=== PATIENT | female | born 1950 | race Caucasian/White ===

== ENCOUNTER 2016-12-26 01:08 | Inpatient (IN) | payer MEDICARE ==
[~2016-12-26] VITALS: Ht 167.6 cm; Wt 74.3 kg
--- NOTE | ~2016-12-26 | CONS ---
PATIENT'S NAME: LOIDA BAHENA [facility] AGE: 66 Y [address] 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 Dear Doctor: It was a pleasure today to see in inpatient consultation, Ms. Loida Bahena. As you recall, this is a 66-year-old white female, with a 50+ pack-year smoking history whose history indicates that over the last week and a half or so, she started having problems with behaving in an odd fashion, disoriented, and having trouble with slurred speech. She indicates that she had trouble articulating and consequently was taken to the emergency room. Initially, she was told, she was dehydrated. Subsequently, she also did start having complaints of lower back pain, and was brought to the emergency room on 12/25/2016 where she underwent a CT which appeared to reveal a subacute left posterior temporal and parietal lobe infarct. Secondary to this, the patient was transferred to [facility], was seen by Dr. Morris. Further workup of this patient indicated scans of the chest which revealed prominent hilar structures possibly vascular but hilar mass and nodule enlargement could not be ruled out. The patient when transferred to [facility], was found to be disoriented, could not give a history at the time, was alert but did not follow commands, and her sister accompanied her from whom a great deal of the history was taken. The patient subsequently underwent a craniotomy with removal of the tumor from the left temporal region, final pathology is pending. Further, the patient on scans was found to have multiple areas of what appears to be metastatic disease including multiple lesions in the lumbar sacral region, in the thoracic spine with a compression fracture at T9. She has lesions in the liver, in the spleen, in the lungs, and the above-mentioned left temporal region as well as a small lesion noted in the right brain as well. Final pathology is pending at this time. PATIENT'S NAME: [facility] AGE: 66 Y [address] ROOM: [id number] [place] [id number] LOCATION: [facility] ADMIT DATE: 12/26/2016 Oncology Report DISCHARGE DATE: FAMILY PHYSICIAN: Tony Kraus MD ATTENDING PHYSICIAN: MIKAEL ZAFAR When seen today, the patient is lying in bed. She is alert, is oriented to person, place, and time. She does have difficulty with speech, aphasia. She indicates she understands what words she wants to say but has difficulty getting them out. She denies any falling episodes. Does indicate that she has had complaints of back pain and confusion. Denies any specific complaints of headaches. ALLERGIES: THE PATIENT HAS NO KNOWN DRUG ALLERGIES. MEDICATIONS: Current medications include: 1. Pepcid. 2. Norvasc. 3. Albuterol. 4. Xylocaine. 5. OxyContin. 6. Apresoline. 7. Trandate. 8. Keppra. 9. Decadron. 10. Reglan. 11. Dilaudid. 12. Zofran. 13. Tylenol. 14. Levaquin. 15. Cefazolin. PAST MEDICAL HISTORY: Surgical: Positive for hysterectomy and cholecystectomy. Medical: Positive for COPD, currently on home oxygen. FAMILY HISTORY: The patient's father from lung cancer with a history of smoking. Mother from heart failure at an old age. SOCIAL HISTORY: The patient lives with her grandson in [place]. She has a 50+ pack-year smoking history. No history of alcohol use. No history of injectable illicit drugs noted. No previous history of radiation therapy noted. REVIEW OF SYSTEMS: Due to the patient's speech aphasia, review of systems was difficult to PATIENT'S NAME: [facility] AGE: 66 Y [address] ROOM: [id number] [place] [id number] LOCATION: [facility] ADMIT DATE: 12/26/2016 Oncology Report DISCHARGE DATE: FAMILY PHYSICIAN: Tony Kraus MD ATTENDING PHYSICIAN: MIKAEL ZAFAR. The patient denied headaches. She denied falling episodes. Indicated she had trouble with disorientation. PHYSICAL EXAMINATION: VITAL SIGNS: Include a temperature of 97.7, a pulse of 82, a blood pressure of 140/68, weight of 75.2 kg. She has O2 sats of 93% on 3 L of oxygen. HEAD AND NECK: Normocephalic, atraumatic. The patient has a dressing in place in the left temporal region. This appears to be within normal limits. The oral cavity is without masses or mycotic lesions. NECK: With no masses noted. BACK: We did not examine the patient's back where she had surgery, today. NEUROLOGIC: The patient appears to be alert and oriented x3. She knows who the president is, what year it is, where she is. She does have difficulty getting these out but is clearly aware as to what is going on around her. She answers questions appropriately although she does have trouble with word finding. Muscle strength in the upper and lower extremities are 4+/5. We did not attempt to walk the patient. The patient is able to step on the gas and pull up on the gas with both her feet. She has good hand strengths, both on the left and the right. She is able to stick her tongue out to the left and right, close her eyes, and not have them opened upon pressure from the examiner. Her mini mental exam appears to be grossly normal but does have speech aphasia. This concluded the limited physical examination of this patient. LABORATORY DATA: The patient has undergone multiple scans. She has had MRIs done of the thoracic spine, with and without contrast, which revealed marrow replacement at T9 with mild compression deformity, neoplastic bone involvement at multiple additional areas of the thoracic spine. Lesion seen at T1, T7, T8. No spinal stenosis identified. The patient also had a MRI of the brain, which revealed postoperative changes in the left temporal parietal craniotomy site. Also noted was a small enhancing lesion in the periventricular white matter at the posterior right temporal lobe. Air and fluid were noted in the operative bed. Prior to her surgery, the patient was found to have a 12 mm in diameter, posterior left temporal lobe lesion, which has been surgically resected at this time. No midline shift was noted at the time. CT of the chest, abdomen, and pelvis revealed extensive mediastinal adenopathy with enlarged nodes at the aortopulmonary window, precarinal, subcarinal, and right paratracheal areas. Also noted was a prominent node, lateral to the descending thoracic aorta. Small left pleural effusion and minimal right pleural effusion were noted. Small pericardial effusion and small area of dependent atelectasis. Vascular changes noted in the thoracic aorta, and vessels, the aortic arch and coronary arteries. Abdomen and pelvis revealed a low attenuation PATIENT'S NAME: LOIDA BAHENA [facility] AGE: 66 Y [address] ROOM: [id number] [place], [place] [address] LOCATION: [facility] ADMIT DATE: 12/26/2016 Oncology Report DISCHARGE DATE: FAMILY PHYSICIAN: Tony Kraus MD ATTENDING PHYSICIAN: MIKAEL ZAFAR lesion, ill-defined left lobe of the liver measuring 5 cm in diameter consistent with metastatic disease, 1 cm low-attenuation lesion in the medial aspect of the spleen, which could be metastatic disease, thickening of the right and left adrenal glands, which could be neoplastic involvement. Two areas of decreased attenuation in the right kidney, the larger being about 6 cm in size, the smaller about 3 cm in size. Multiple areas of small decreased attenuation in the cortex of the left kidney which could reflect areas of renal infarction or infiltrative neoplastic renal involvement. Pathology is pending at this time. We will await final pathology. ICD 10. IMPRESSION: A 66-year-old white female with what appears to be widely metastatic disease from a probable lung primary with metastatic disease to the brain, thoracic lumbar spine region, liver, spleen, lungs; workup in progress. PLAN: We discussed with the patient the fact that she would probably need adjuvant radiotherapy as well as chemotherapy. We went over with her the potential risks and benefits. The patient indicated that she lives in [place] and would wish to be treated there. We are in agreement with this. As such, we understand the patient is being scheduled to be transferred to a skilled unit in [place]. We indicated to her that we would encourage her to be seen by Radiation Oncology and Medical Oncology in [place], so that they could address her issues and treat her. The patient was thankful for our help. She indicated she was very much wanting to go home. We were in agreement with this. Consequently, we will defer from any treatment plan for this patient at this time. We indicated to her that should there be a problem in the future, we would be glad to see her as she desired. She will be transferred to [place] where she can be seen by Radiation Oncology and Medical Oncology and a treatment plan devised. We thank you for allowing us to consult on this most pleasant patient. Sincerely, GENO SHERMAN MD, PHD PATIENT'S NAME: LOIDA BAHENA [facility] AGE: 66 Y [address] ROOM: [place] [address] LOCATION: [facility] ADMIT DATE: 12/26/2016 Oncology Report DISCHARGE DATE: FAMILY PHYSICIAN: Tony Kraus MD ATTENDING PHYSICIAN: MIKAEL ZAFAR/ulysses /[id number] CC: MD Srinivasan Morse MD Ahmad Bader, MD d: 12/29/16 1208 t: 01/11/17 1156, CONSULTATION REPORT
--- NOTE | ~2016-12-26 | CON ---
PATIENT'S NAME: LOIDA BAHENA [facility] AGE: 66 Y [address] ROOM: [address] [address] LOCATION: GICU ADMIT DATE: 12/26/2016 Consultation DISCHARGE DATE: FAMILY PHYSICIAN: PHYSICIAN, UNKNOWN ATTENDING PHYSICIAN: MIKAEL ZAFAR REFERRING PHYSICIAN: JORDAN MORRIS MD CONSULTATION NOTE CHIEF COMPLAINT: Asked to evaluate the patient with metastatic disease to the brain. HISTORY OF PRESENT ILLNESS: Loida Bahena is a 66-year-old female, who lives with her grandson, who over the last couple weeks has had increased disorientation and not making sense. Her speech has been fluent and she has been able to walk and get around without difficulty, although her performance status and strength had been diminishing. She was not walking around as much in the house and difficulty lying on the furniture more often over the last couple weeks. Because of the disorientation, the patient was seen for evaluation. Thought to have possible infection and subsequently returned for re-evaluation and on 12/25, CT scan of the brain was performed which demonstrated concerning findings for an acute or subacute infarct and this was reviewed by Dr. Morris and the patient was transferred for further care given the concern that this would be a malignant process. While here on 12/26/2016, she had an MRI of the brain, which did demonstrate a 12-mm mass at the posterior left jewish area with associated edema. Additionally, a small area at the right posterior jewish was noted. A CT scan of the chest, abdomen, and pelvis was performed which demonstrated extensive adenopathy in the thorax and abdomen along with right hilar soft- tissue fullness, left greater than right pleural effusion, liver mass, kidneys with multiple hypoattenuation lesions, bilateral adrenal thickening and a T9 lytic lesion. The patient did undergo craniotomy yesterday with frozen section suggesting squamous cell carcinoma. Final pathology is pending. She was initiated on dexamethasone 4 mg q.6 hours and today is doing fair a bit better with speech and muscle strength, although not at baseline per the family. The patient does report some back pain. She does not go into detail and answers mostly yes and no questions during the evaluation, but it appears, she has midback pain that comes around the sides. Additionally, she confirmed leg weakness, but still has been able to get around the house with the aid of furniture. She denies any other aches or pains. Denies any breathing trouble, cough, or phlegm. She denies any abdominal pain or discomfort. No nausea or vomiting. REVIEW OF SYSTEMS: The remainder of the review of systems is unremarkable or negative in detail. PATIENT'S NAME: LOIDA BAHENA [facility] AGE: 66 Y [address] ROOM: [place] [address] LOCATION: [facility] ADMIT DATE: 12/26/2016 Consultation DISCHARGE DATE: FAMILY PHYSICIAN: PHYSICIAN, UNKNOWN ATTENDING PHYSICIAN: MIKAEL ZAFAR PAST MEDICAL HISTORY: Includes: COPD and was recently placed on home oxygen. ALLERGIES: NO KNOWN MEDICAL ALLERGIES. SOCIAL HISTORY: The patient has smoked for the last 50 years one pack per day and continues. 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 FAMILY HISTORY: The patient's father had lung cancer. Otherwise, no other cancers in the family. PHYSICAL EXAMINATION: VITAL SIGNS: Blood pressure 124/76, pulse 76, respirations 12, and temperature 98.2. GENERAL: The patient appears quite comfortable. No apparent distress. She is accompanied by a number of family members and grandson included at her bedside. HEENT: Pupils are equal, round, minimally responsive to light. Extraocular muscles are intact. Oral mucosa is moist and pink without erythema, without lesions. NECK: Without adenopathy as is the axillary region. HEART: Regular rate and rhythm. No murmurs appreciated. LUNGS: Clear to auscultation bilaterally without wheezing, without rhonchi. ABDOMEN: Bowel sounds positive. She is tender to palpation in the upper and left upper quadrant epigastric area more so than the rest of the belly. EXTREMITIES: Without cyanosis, clubbing, or edema. She moves all extremities spontaneously. Hand video manager is 4+ to 5/5 and dorsiflexion and plantar flexion of the feet seem to be symmetric and 4+ to 5/5 bilaterally. She does lift both legs off the bed without difficulty. IMAGING STUDIES: Radiologic review included a CT scan and MRI as noted above. LABORATORY DATA: Laboratory includes chemistries with a BUN and creatinine of 24 and 0.7 respectively. Potassium was 4.1. LFTs were unremarkable with an AST of 20, ALT of 18, and alkaline phosphatase of 98. Her albumin was 2.5, total protein 9, and globulin of 5. CBC was unremarkable with a white blood cell count of 8.6, hemoglobin 16.1, and platelets are 241,000. IMPRESSION AND PLAN: PATIENT'S NAME: LOIDA BAHENA [facility] AGE: 66 Y [address] ROOM: [place] [address] LOCATION: [facility] ADMIT DATE: 12/26/2016 Consultation DISCHARGE DATE: FAMILY PHYSICIAN: PHYSICIAN, UNKNOWN ATTENDING PHYSICIAN: MIKAEL ZAFAR Loida Bahena is a 66-year-old female with disseminated disease consistent with metastatic disease along with findings consistent with brain metastasis status post craniotomy on 12/26/2006 with frozen section suggesting squamous cell carcinoma. This would be consistent with her clinical finding of hilar mass and findings suggest liver, renal, and bone metastases. She does have an MRI of the spine scheduled for later today given the back pain. We will await the MRI scans as should the patient have metastatic disease to the spine with spinal cord compression. Radiation therapy could be considered, additionally radiation therapy either as stereotactic radiosurgery or whole-brain radiation could be considered for the brain metastasis as well. Systemic therapy including chemotherapy or immunotherapy are also worth considering and would depend on further testing by [facility] and certainly would depend on the final pathology report. We will send out for [facility] testing knowing that this takes a couple weeks to return and likely delay the systemic therapy consideration until those results are back. MD CHRIS OCPE/ulysses /[id number] d: 12/27/16 1857 t: 01/05/17 1251, CONSULTATION REPORT
--- NOTE | ~2016-12-26 | CON ---
PATIENT'S NAME: FABY BAHENA [facility] AGE: 66 Y [address] ROOM: [place] [id number] LOCATION: GICU ADMIT DATE: 12/26/2016 Consultation DISCHARGE DATE: FAMILY PHYSICIAN: PHYSICIAN, UNKNOWN ATTENDING PHYSICIAN: MIKAEL ZAFAR DATE OF CONSULTATION: 12/26/2016 REFERRING PHYSICIAN: JORDAN FENTON MD CHIEF COMPLAINT: Left temporal intra-axial tumor, confusion, dysphagia. HISTORY OF PRESENT ILLNESS: The patient is a 66-year-old, right-handed female patient, who has been having increasing confusion, disorientation, behavioral changes, and speech difficulties for 7 to 10 days. The patient also has been complaining of severe mid back pain. She was previously diagnosed with T9 compression fractures and she is due for MRI spine this week. On December 25, 2016, the patient's confusion and disorientation increased. She was seen at [facility] and a noncontrast CT head showed evidence of left temporal lobe vasogenic edema and suspicious intra-axial mass. The patient does have a long history of heavy smoking and COPD. I was contacted and reviewed the images. I recommended transferring the patient over for further investigations and treatment and the patient was admitted under the hospitalist. I met the patient in the presence of her family. Her sister Arianna confirmed the history. The patient also reported headaches. She also reported unsteady gait. They denied falls. The patient was in excruciating back pain at the time of the encounter. She denied weakness on her hands, weakness on her feet. She denied visual disturbances. PAST MEDICAL AND SURGICAL HISTORY: COPD, heavy smoking, hysterectomy, cholecystectomy. MEDICATIONS: Listed in the patient's chart. ALLERGIES: NO KNOWN DRUG ALLERGIES. REVIEW OF SYSTEMS: All points review of systems were asked about. Pertinent positives were mentioned in the HPI. SOCIAL HISTORY: PATIENT'S NAME: [facility] AGE: 66 Y [address] ROOM: [place] [address] LOCATION: [facility] ADMIT DATE: 12/26/2016 Consultation DISCHARGE DATE: FAMILY PHYSICIAN: PHYSICIAN, UNKNOWN ATTENDING PHYSICIAN: MIKAEL ZAFAR The patient is an active smoker. She has done that for many years. She denies alcohol intake. FAMILY HISTORY: History of lung cancer in her dad. PHYSICAL EXAMINATION: GENERAL: The patient was cooperative and pleasant. HEENT: Head; no obvious signs of head trauma. The pupils were 3 mm and reactive. The sclera examination was normal. NECK: No tenderness to palpation. No palpable masses. NEUROLOGIC: The patient was alert, awake, oriented to herself and [facility]. She was disoriented to time and date. She named 2/3 objects. She had a right/left disorientation. She only followed one step commands. She had obvious word-finding difficulties and dysphasia. She was also perservating. Pupils were 3 mm and reactive. Sclerae examination was normal bilaterally. Face was symmetric. Facial sensation was symmetric. No evidence of pronator drift. Motor examination on the lower extremities showed moderate proximal muscle weakness. She also had positive Babinski sign bilaterally and positive clonus on her feet. RESPIRATORY: She was not in any respiratory distress. CARDIOVASCULAR: She had palpable pulses on the upper extremities. BACK: No obvious deformity, but had tenderness to palpation in the thoracic spine. GAIT: Not done. MUSCULOSKELETAL: No evidence of muscle wasting. INVESTIGATIONS: 1. Noncontrast CT head done in [place] on December 25, 2016 which I personally reviewed. It showed evidence of swelling and vasogenic edema involving the posterior aspect of the left temporal lobe. It also showed signs of an intra-axial growth within left temporal lobe with vasogenic edema. No evidence of fractures. 2. MRI brain without and with contrast done on December 26, 2016. It showed evidence of ring enhancing, intra-axial lesion within the posterior aspect of the left temporal lobe. It also showed evidence of another small lesion within the right temporal lobe. The imaging findings are very highly suspicious for secondary brain tumor/metastases. 3. Chest, abdomen, and pelvic CT scans. I reviewed the report. The patient does have extensive adenopathy involving the thorax and abdomen. It also showed evidence of possible mass within the left lung. She also has bilateral pleural effusion. It also showed evidence of liver lesion. It also showed evidence of abnormalities in the kidneys. It also showed evidence of involvement of the adrenal glands. The imaging findings are very highly suspicious for metastatic disease. PATIENT'S NAME: FABY BAHENA [facility] AGE: 66 Y [address] ROOM: [id number] [place] [address] LOCATION: [facility] ADMIT DATE: 12/26/2016 Consultation DISCHARGE DATE: FAMILY PHYSICIAN: PHYSICIAN, UNKNOWN ATTENDING PHYSICIAN: MIKAEL ZAFAR IMPRESSION: A 66-year-old female patient is presenting with increasing confusion, speech difficulties, and behavioral changes, is found to have a ring enhancing mass within the posterior aspect of the left temporal lobe. The imaging also showed evidence of another smaller ring enhancing mass within the right temporal lobe. The imaging findings are very highly suspicious for metastatic brain disease. The patient had metastatic workup and that revealed liver, adrenal, kidney, and left lung lesions as well as extensive thorax and abdomen adenopathy. All those findings are very highly suspicious for metastatic disease. PLAN: I recommended left craniotomy and resection of left temporal intra-axial mass. I recommended that using stealth navigation system. I discussed the procedure itself, the benefits, and all the risks associated with it with the patient and her sister Arianna. I also discussed hospital stay, postoperative management, and recovery. The patient and her family were interested in proceeding with surgery, so the patient was booked for surgery With regard to the T9 compression fracture, I recommended MRI thoracic and lumbar spine to further investigate that for pathological fracture and possible spinal cord compression at that level which can explain the weakness on the lower extremities. With regard to postoperative management, I clearly indicated that Medical and Radiation Oncology will be involved. The patient and her sister asked appropriate questions and those were answered to their satisfaction. They were interested in proceeding with surgery, so the patient was booked for surgery. It was pleasure taking care of this patient and thanks for having us involved. MD LB GIANG/modl /[id number] CC: MD Tony Morse MD d: 12/26/16 2329 t: 12/28/16 1606, CONSULTATION REPORT
--- NOTE | ~2016-12-26 | DS ---
PATIENT'S NAME: FABY BAHENA [facility] AGE: 66 Y [address] ROOM: [id number] [place], [place] [address] LOCATION: CU ADMIT DATE: 12/26/2016 Discharge Summary DISCHARGE DATE: 12/30/2016 FAMILY PHYSICIAN: Tony Kraus MD ATTENDING PHYSICIAN: Brad Herman ADMISSION MAIN DIAGNOSES: 1. Left temporal intraparenchymal tumor, metastatic brain disease. 2. T9 pathologic compression fracture with significant back pain. DISCHARGE MAIN DIAGNOSES: 1. Left temporal intraparenchymal tumor, metastatic brain disease ( adenocarcinoma). 2. T9 pathologic compression fracture with significant back pain. PROCEDURES DURING ADMISSION: 1. Stealth guided left temporal craniotomy and gross total resection of left temporal intraparenchymal tumor. 2. T9 kyphoplasty (performed by Dr. Tony Cifuentes). COMPLICATIONS DURING ADMISSION: None. MEDICATIONS ON DISCHARGE: 1. Norvasc 2.5 mg p.o. once daily. 2. Dexamethasone 3 mg p.o. every 8 hours for 2 days, then 2 mg p.o. every 8 hours for 3 days, then 2 mg p.o. b.i.d. for 3 days, then 2 mg p.o. once daily untill assessed by medical and radiation oncology. 3. Lovenox 40 mg subcu once daily. 4. Pepcid 20 mg p.o. b.i.d. 5. Lasix 40 mg p.o. once daily. 6. Keppra 500 mg p.o. b.i.d. 7. Levaquin 750 mg p.o. once daily for 2 days. 8. Ipratropium albuterol 0.5-3 mg per 3 mL 1 inhaler 4 times a day. 9. Tramadol 50 mg p.o. every 6 hours p.r.n. 10. Reglan 10 mg p.o. every 6 hours p.r.n. 11. Zofran 4 mg p.o. every 6 hours p.r.n. DISCHARGE INSTRUCTIONS AND FOLLOWUP APPOINTMENTS: 1. The patient will be transferred to a swing bed in [place] to continue inpatient physical therapy, inpatient Occupational Therapy, and speech therapy. 2. The patient may wash her head on January 01, 2017. 3. Discontinue head chris on January 08, [address] Kraus. 4. MRI brain without and with contrast prior to starting whole-brain radiation. PATIENT'S NAME: FABY BAHENA [facility] AGE: 66 Y [address] ROOM: [id number] [place], [place] [address] LOCATION: GICU ADMIT DATE: 12/26/2016 Discharge Summary DISCHARGE DATE: 12/30/2016 FAMILY PHYSICIAN: Tony Kraus MD ATTENDING PHYSICIAN: Brad Herman 5. Call my office for any concerns regarding the wound healing or for any new neurologic symptoms. HOSPITAL COURSE: The patient is an unfortunate 66-year-old female patient who was diagnosed with a left temporal intraaxial tumor. She was having increasing confusion, headaches, and speech difficulties. She was transferred over from [facility] and further investigations revealed ring-enhancing mass in the left temporal lobe associated with significant vasogenic edema as well as a small ring-enhancing mass in the right temporal lobe. The patient had metastatic workup done here and that revealed numerous spine lesions, T9 pathologic fracture with no significant spinal cord compression, large left lung mass associated with thoracic and abdominal adenopathy, bilateral pleural effusions, hepatic mass, adrenal and kidney masses. The patient underwent left craniotomy and resection of tumor on December 26, 2016 without any complications. The patient did very well postoperatively. Her preoperative dysphasia slowly started to improve. She had a postoperative MRI without and with contrast and that showed gross total resection of the left temporal ring-enhancing tumor. The final pathological analysis came back and that was consistent with metastatic adenocarcinoma. The patient was seen by Medical Oncology and Radiation Oncology here. It was felt that this patient would benefit from systemic chemotherapy/immunotherapy as well as whole-brain radiation/SRS. The patient was having severe back pain from the T9 pathologic fracture. Given that, the patient underwent T9 kyphoplasty on December 28, [address] Cifuentes without any complications. She did very well after it. She mobilized well with physical therapy and occupational therapy. She had significant improvement of the back pain. Given the patient's recent surgery and systemic disease, I felt that this patient would benefit from intensive inpatient rehab. I felt that this can be done in a swing bed at [facility] and patient was asking to be closer to home. Given that, arrangements were made to transfer the patient to [facility] to continue inpatient physical therapy, occupational therapy, and speech therapy. Arrangements were also made for this patient to follow with Medical and Radiation Oncology in [place] to start adjuvant therapy. On the day of discharge, I examined the patient, she was doing very well, her incision was healing very well without any evidence of leakage or infection. She was alert, oriented to herself and to place. She followed 1 and 2 step commands. She named 3/3 objects. The preop left/right disorientation improved. Pupils were equal and reactive. She moved all 4 extremities without any focal weakness. Given that, I felt that the patient is stable for discharge. I also discussed the situation and discharge instructions with receiving physician, Dr. Kraus. Dr. Kraus was asked appropriate questions about management. The patient will be transferred over today. PATIENT'S NAME: FABY BAHENA [facility] AGE: 66 Y [address] ROOM: [place] [address] LOCATION: [facility] ADMIT DATE: 12/26/2016 Discharge Summary DISCHARGE DATE: 12/30/2016 FAMILY PHYSICIAN: Tony Kraus MD ATTENDING PHYSICIAN: Brad Herman MD LB GIANG/ulysses /[id number] CC: MD Tony Morse MD Lissa A Woodruff, MD d: 12/31/16 0307 t: 12/31/16 1126, DISCHARGE SUMMARY
--- NOTE | ~2016-12-26 | OR ---
PATIENT'S NAME: JOSEF, [facility] AGE: 66 Y [address] ROOM: [place] [address] LOCATION: GICU ADMIT DATE: 12/26/2016 OR/Procedure Report DISCHARGE DATE: FAMILY PHYSICIAN: PHYSICIAN, UNKNOWN ATTENDING PHYSICIAN: MIKAEL ZAFAR SURGEON: Bhupendra Morris MD RETURN AGENT AIRPORT: DATE OF PROCEDURE: 12/26/2016 ANESTHESIOLOGIST: Garfield Shaw MD ANESTHESIA: General. COMPLICATIONS: None. ESTIMATED BLOOD LOSS: Minimal. PREOPERATIVE DIAGNOSIS: Left temporal intra-axial tumor with significant vasogenic edema. POSTOPERATIVE DIAGNOSIS: Left temporal intra-axial tumor with significant vasogenic edema. PROCEDURES PERFORMED: 1. Stealth navigation system. 2. Stealth guided left temporal craniotomy and gross total resection of intra-axial temporal lobe tumor. CLINICAL HISTORY: The patient is an unfortunate 66-year-old female patient, who has been noticed by her family to have disorientation and changes in her behavior as well as speech difficulties for a few weeks, was diagnosed with a left temporal intra-axial ring enhancing tumor. The patient was seen yesterday at [facility], and a noncontrast CT head showed significant vasogenic edema in the posterior aspect of the left temporal lobe. The patient was transferred over and further investigated. She had brain MRI without and with contrast and that showed a ring enhancing lesion within the posterior aspect of the left temporal lobe as well as another small ring enhancing mass within the right temporal lobe. The mass in the left temporal lobe was associated with significant edema. The patient also had metastatic workup with chest, abdomen, and pelvic CT scans and those showed evidence of widespread lymphadenopathy, hepatic mass, adrenal mass, and fracture involving the T9 vertebra. It also showed mediastinal lymphadenopathy. Based on the MRI findings, I thought that the intracranial lesions are most likely metastatic. Given the patient's symptoms, I recommended the above-mentioned surgery to resect the tumor, establish the diagnosis, and hopefully reverse PATIENT'S NAME: JOSEF, [facility] AGE: 66 Y [address] ROOM: [place] [address] LOCATION: GICU ADMIT DATE: 12/26/2016 OR/Procedure Report DISCHARGE DATE: FAMILY PHYSICIAN: PHYSICIAN, UNKNOWN ATTENDING PHYSICIAN: MIKAEL ZAFAR the deficits. I discussed the procedure itself with the patient and her sister, Arianna. I discussed the risks and benefits associated with it. The patient and her family were interested in proceeding so the patient was brought in for surgery. Her preoperative examination was also remarkable for weakness in the lower extremities. Her thoracic spine CT scan showed a fracture in T9 vertebra. The fracture looked pathological. I clearly indicated that the patient will require more spine investigations postoperatively and that will be spine MRI. DESCRIPTION OF PROCEDURE: The patient was seen in the preoperative care unit and the correct side was marked. Then, she was transferred to the main operating theater, was given general anesthetic, and underwent endotracheal intubation without complications. Preoperative antibiotics, steroids, and mannitol were given. Martinez catheter, calf compressors, arterial line, and a central line were used throughout the procedure. The patient was positioned supine on the table and all her joints and bony prominences were securely padded. The patient's head was turned to the right side. The patient's head was clamped in three pins Schreiber and secured to the table. Then, the patient was registered to the [employer] navigation system with good accuracy. I navigated the extent of the tumor on the scalp and based on that, I marked a linear incision on the left side. The hair overlying the incision was clipped off. The surgical site was prepped and draped as per usual. The proposed skin incision was infiltrated with 0.25% Marcaine with epinephrine. Skin was sharply opened down to the bone, and Tiago clips were used to control bleeding. Then, the skin flaps were elevated anteriorly and posteriorly. I then used the [employer] navigation system to hermilo the extent of the tumor and based on that, one bur hole was fashioned down to the dura and bone flap was turned and elevated. Bleeding from the epidural veins was controlled with bipolar. Then, the dura was opened in a cruciate fashion and 4-0 Nurolon tack-up stitches were placed. I again navigated the extent of the tumor on the cortex. Then, I proceeded to resect the tumor. A corticotomy was made using bipolar and cautery. I deepened the corticotomy and had a depth of 1 cm, I came across a firm, rubbery, yellowish mass with distinct brain tumor interface. Then, I dissected in the brain tumor interface. I started the superior, then inferior, then posterior, and finally anterior. Along the anteroinferior aspect of the tumor, there was a feeding artery that ended in the tumor. Two titanium hemoclips were placed on the artery and the tumor was disconnected. I then inspected the surgical cavity and I thought I achieved total resection. The tumor was sent out for pathological analysis. Later in the case, I received the frozen section analysis and that was consistent with likely metastatic carcinoma. I was satisfied with the resection. I then examined the resection cavity using the Stealth and no residual was identified. The wound was then PATIENT'S NAME: FABY BAHENA [facility] AGE: 66 Y [address] ROOM: [place] [address] LOCATION: CU ADMIT DATE: 12/26/2016 OR/Procedure Report DISCHARGE DATE: FAMILY PHYSICIAN: ROCIO JERRY ATTENDING PHYSICIAN: MIKAEL ZAFAR copiously irrigated with a warm Plasma-Lyte. The surgical cavity was lined up with one layer of Surgicel. Then, I proceeded to closure. The dura was re-approximated with 4-0 Nurolon stitches. DuraGen was laid on the dura. The bone was then anchored to the skull with titanium plates and mini screws. The wound was then washed with bacitracin-containing irrigation. The skin was then closed in layers with 2-0 Vicryl to the galea and chris for the skin. Sterile dressing was applied. At the end of the operation, the instrument and sponge counts were correct. The patient tolerated the operation without any complications. BHUPENDRA MORRIS MD AB/modl /[id number] CC: Tony Kraus MD d: 12/26/162002 t: 12/28/161634, OPERATIVE SUMMARY
--- NOTE | ~2016-12-26 | HP ---
PATIENT'S NAME: FABY BAHENA [facility] AGE: 66 Y [address] ROOM: [address] [place], [place] [address] LOCATION: [facility] ADMIT DATE: 12/26/2016 History & Physical DISCHARGE DATE: FAMILY PHYSICIAN: PHYSICIAN, UNKNOWN ATTENDING PHYSICIAN: MIKAEL ZAFAR DATE OF SERVICE: CHIEF COMPLAINT: Disorientation. HISTORY OF PRESENT ILLNESS: This is a 66-year-old female, who has a long history of cigarette smoking about 1 pack per day and still smokes 1 pack per day. The story is obtained directly from the patient's sister, her name is Arianna and her phone number is [phone]. The sister is a reliable historian and I got the story from the sister. The story is that for the last 7 days the patient has been behaving weird, which she described as disorientation on and off. She could speak without slurred speech, but she just does not make sense in terms of communication. She can articulate well, but the things that she said does not make sense and does not answer questions appropriately either. This was on and off for the last 7 days. Because of this, the patient was seen in [place] a few days ago and the patient was told that she was dehydrated. She got some IV fluids and was also told that she might have some lung infection. She was put on antibiotics with cefuroxime that was started a few days ago. She was sent home. At the same time, she chronically had a lower back pain and she was given some narcotics, she could not remember which one, and that she was told that possibly the narcotics also can cause the confusion that she was having. Either way, the patient was sent home; however, since yesterday the patient's disorientation persisted and the patient was also unsteady on her feet, but she denies any fall. The patient was brought back to the clinic again and a CT of the brain was performed on December 25, 2016, from [place] and the preliminary report was read as an acute to subacute left posterior temporal and parietal lobe infarct. Because of this concern, [place] facility contacted our on-call neurosurgeon, Dr. Morris, who reviewed the imaging and was actually concerning for malignancy. The patient also had a chest x-ray performed on December 25, 2016, and preliminary report also read as prominent hilar structures, could be vascular, but cannot exclude hilar mass or nodule enlargement. Bilateral lower lobe airspace opacities, which may be due to an acute pneumonic process. Mild vascular congestion. Because of the finding in the brain, the patient was sent over here for further care. In addition, when the patient was in [place] for the last few days when she was told she could have a lung infection, she was also put on home oxygen nasal cannula / at home. PATIENT'S NAME: FABY BAHENA [facility] AGE: 66 Y [address] ROOM: [address] [address] LOCATION: [facility] ADMIT DATE: 12/26/2016 History & Physical DISCHARGE DATE: FAMILY PHYSICIAN: PHYSICIAN, UNKNOWN ATTENDING PHYSICIAN: MIKAEL ZAFAR On arrival, the patient is disoriented and cannot give any history at all. She is alert, but does not follow commands. Therefore, I got the story from the sister. REVIEW OF SYSTEMS: Cannot be obtained directly from the patient given that the patient is confused. I obtained the review of systems from the patient's sister over the phone. PAST MEDICAL HISTORY: COPD, currently on home oxygen, but the patient's sister is not sure how many liters she uses at all times. ALLERGIES: ACCORDING TO HER SISTER, NO KNOWN DRUG ALLERGIES. HOME MEDICATIONS: Currently is being reconciled. SOCIAL HISTORY: The patient is an active cigarette smoker about 1 pack per day for many years, more than 50 years according to the patient's sister. Denies any alcohol or any illegal drug use. PAST SURGICAL HISTORY: 1. Hysterectomy. 2. Cholecystectomy. FAMILY HISTORY: Father from lung cancer, was heavy smoker and mother from complications from heart failure at old age. PHYSICAL EXAMINATION: VITAL SIGNS: At the time of my evaluation, temperature 98.5, heart rate 75, respirations 12, blood pressure 145/73, saturation 92% on 5 L nasal cannula. GENERAL APPEARANCE: The patient is alert, but disoriented x3. Cannot follow commands or give any history. The patient is not restless and not agitated. The patient is calm and not in distress. HEENT: Pupils are equally round and reactive to light. Extraocular muscle movement cannot be assessed given the patient does not follow commands. Anicteric sclerae. Nasal turbinates are normal bilaterally. Moist oral mucosa. NECK: No JVD. CARDIOVASCULAR: Regular rate and rhythm. Normal S1, S2. No murmur. No rubs. No gallops. PATIENT'S NAME: FABY BAHENA [facility] AGE: 66 Y [address] ROOM: [place] [address] LOCATION: [facility] ADMIT DATE: 12/26/2016 History & Physical DISCHARGE DATE: FAMILY PHYSICIAN: PHYSICIAN, UNKNOWN ATTENDING PHYSICIAN: MIKAEL ZAFAR RESPIRATORY: Decreased breath sounds diffusely with some bibasilar crackles. No wheezing. No rhonchi. No rales. ABDOMEN: Soft, nontender, nondistended. Bowel sounds present, and no mass. EXTREMITIES: She has +1 bilateral pitting edema in bilateral lower extremities. NEUROLOGICAL: Cannot perform a full neurological exam given the patient does not follow all the commands. On close inspection, the patient does not have any facial droop or slurred speech. Babinski also negative. Otherwise, the patient would not answer any other questions, therefore I cannot perform a full neurological exam. The patient can move all 4 extremities on her own. The patient can squeeze with both hands when asked, but was somewhat weak about 3/5. Again, the patient is not following all the commands, cannot perform a full neurological exam. SKIN: No ulcer, no rash, no cyanosis. LABORATORY DATA: Laboratory data from the outside facility on the day of transfer showed white blood cell 10.2, hemoglobin 15.7, hematocrit 48.4, platelet 240. Sodium 138, potassium 4.2, chloride 98, anion gap 16.8, carbon dioxide 28, glucose 138, BUN 23, creatinine 0.55, GFR 111, calcium 9.0, total protein 7.2, globulin 3.8, albumin 3.4, AST 24, ALT 24, alkaline phosphatase 102, total bilirubin 0.8, lactic acid 1.0. Urinalysis negative for UTI. Troponin less than 0.012, CK-MB 0.43, CPK less than 20. IMAGING STUDIES: Already mentioned in the history of present illness, which includes chest x- ray and also CT scan of the brain without contrast. ASSESSMENT AND PLAN: 1. Regarding her brain mass: The plan has already been formulated by our on- call neurosurgeon, Dr. Morris, who has already written the orders in the chart. The plan will be to get an MRI with and without contrast of the brain and also a CT of the chest, abdomen, and pelvis with contrast to look for the malignancy workup. Due to her significant smoking history and the finding on the x-ray, probably the patient has a lung mass that could be the primary lung cancer. CT chest will better define that today. We will get a speech and swallow evaluation in the morning and also n.p.o. for Neurosurgery to schedule the procedure in the morning. Frequent neuro checks. IV fluids ordered by neurosurgeon will be IV normal saline plus 20 mEq Kcl at 50 mL/hour. We will check a fingerstick glucose to see what her glucose level right now. Fall precaution and aspiration precaution. Check the labs in the morning. EKG in the morning. Also to prevent seizure, the patient will be getting Keppra 1 g IV at outside facility, for now continue with a 500 mg twice a day. We will also continue dexamethasone, which she got 10 mg outside, right now PATIENT'S NAME: FABY BAHENA [facility] AGE: 66 Y [address] ROOM: [place] [address] LOCATION: [facility] ADMIT DATE: 12/26/2016 History & Physical DISCHARGE DATE: FAMILY PHYSICIAN: PHYSICIAN, UNKNOWN ATTENDING PHYSICIAN: MIKAEL ZAFAR continue with 4 mg every 6 hours. In addition, will be getting Pepcid 20 mg p.o. b.i.d. The goal for the blood pressure control will be less than systolic blood pressure of 150. We will be using IV labetalol and also IV hydralazine p.r.n. to reach such goal. 2. Regarding her chronic obstructive pulmonary disease: The patient does have some bibasilar crackles on examination. Given that the patient was on antibiotic recently for lung infection that she was told that she had in [place]. I will treat her chronic obstructive pulmonary disease exacerbation with steroids and nebulization, and also antibiotics. The antibiotics will be using IV Levaquin for community-acquired coverage. We will also check a sputum culture, Gram stain, as well as a urinary antigen for Legionella and pneumococcal. Currently, the patient is having a CT scan of the chest performed. 3. Regarding her disorientation: See #1 for details, this is secondary due to the brain mass concerning for malignancy. Time spent in the care on the day of admission 50 minutes, where 20 minutes was spent on chart review and the remainder of the time was spent on interview by calling the patient's sister on the phone to get the story and also includes physical examination and addressing all the questions and concerns the patient's sister had over the phone to her satisfaction. I also went over the plan of care with the patient's sister and the patient. Further plan will depend on clinical course. This time also includes keeping in touch with the on-call neurosurgeon, Dr. Morris for coordination of care. Further plan will depend on clinical course. MD RENATO WEBSTER/ulysses /[id number] D: [id number] T: [id number] HISTORY & PHYSICAL
[2016-12-26] MEDS ORDERED: ULTRAM50 MG PO (02:34)
[2016-12-26] MEDS ORDERED: [UNRECOGNIZED DRUG - OTHER] PO (02:34)
[2016-12-26] MEDS ORDERED: ZOFRAN4 MG PO (02:34)
[2016-12-26] MEDS ORDERED: TYLENOL325 MG PO (02:35)
[2016-12-26] MEDS ORDERED: OXYGEN M-15 INH (02:36)
[2016-12-26 05:32] LABS: BASOPHIL # 0.1 K/uL (0.0-0.2); BASOPHIL % 0.6 %; EOSINOPHIL % 0.1 %; HEMATOCRIT 51.8 % (33.0-46.0); HEMOGLOBIN 16.1 g/dL (10.0-15.0); IMMATURE GRANULOCYTE # 0.1 K/uL (0.0-0.3); IMMATURE GRANULOCYTE % 0.6 %; LYMPHOCYTE # 0.9 K/uL (0.8-4.0); LYMPHOCYTE % 10.1 %; MCH 26.7 pg (27.0-34.0); MCHC 31.1 gm/dL (32.0-36.5); MCV 85.9 fl (83.0-98.0); MONOCYTE # 0.1 K/uL (0.0-1.0); MONOCYTE % 0.7 %; MPV 10.1 fl (9.4-12.4); NEUTROPHIL # (ANC) 7.6 K/uL (1.8-7.8); NEUTROPHIL % 87.9 %; NRBC % 0 /100WBC (0-0.00); PLATELET COUNT 241 K/uL (150-450); RBC 6.03 M/uL (3.50-5.50); RDW-CV 14.8 % (11.9-14.6); WBC 8.6 K/uL (4.0-11.0)
[2016-12-26 05:44] LABS: INR - (THERAPEUTIC) 1.49 (0.92-1.07); PROTIME 15.7 SECONDS (9.8-11.4); PTT 26 SECONDS (25-32)
[2016-12-26 05:50] LABS: ALBUMIN 2.5 gm/dL (3.5-5.0); ALK PHOS 98 IU/L (33-138); ALT 18 IU/L (12-78); ANION GAP 13.1 (10.0-19.0); AST 20 IU/L (10-40); BLOOD UREA NITROGEN 24 mg/dL (6-24); CHLORIDE 100 mMol/L (96-110); CO2 29 mMol/L (22-32); CREATININE 0.7 mg/dL (0.5-1.1); POTASSIUM 4.1 mMol/L (3.7-5.1); SODIUM 138 mMol/L (135-145); TOTAL BILIRUBIN 0.5 mg/dL (0.0-1.5); TOTAL PROTEIN 7.5 g/dL (6.0-8.4)
[2016-12-26 08:37] LABS: BILIRUBIN URINE NEGATIVE (NEGATIVE); BLOOD URINE 250 /UL (NEGATIVE); COLOR URINE YELLOW (YELLOW); GLUCOSE URINE NEGATIVE (NEGATIVE); KETONE URINE 50 mg/dL (NEGATIVE); LEUKOCYTES URINE 25 /UL (NEGATIVE); NITRITE URINE NEGATIVE (NEGATIVE); PROTEIN URINE 100 mg/dL (NEGATIVE); SPEC GRAVITY URINE 1.015 (1.003-1.035); TURBIDITY URINE CLEAR (CLEAR); UROBILINOGEN URINE 1 mg/dL (NORMAL)
[2016-12-26 09:07] LABS: AMORPHOUS URINE 1+ (NEGATIVE); BACTERIA URINE RARE (NEGATIVE)
[2016-12-26 09:08] LABS: WBC CLUMPS URINE FEW (NEGATIVE)
[2016-12-27 12:16] LABS: BASOPHIL % 0.1 %; HEMATOCRIT 48.8 % (33.0-46.0); HEMOGLOBIN 15.5 g/dL (10.0-15.0); IMMATURE GRANULOCYTE # 0.1 K/uL (0.0-0.3); IMMATURE GRANULOCYTE % 0.6 %; LYMPHOCYTE # 1.6 K/uL (0.8-4.0); LYMPHOCYTE % 9.3 %; MCH 27.6 pg (27.0-34.0); MCHC 31.8 gm/dL (32.0-36.5); MONOCYTE % 5.8 %; MPV 10.5 fl (9.4-12.4); NEUTROPHIL # (ANC) 14.3 K/uL (1.8-7.8); NEUTROPHIL % 84.2 %; NRBC % 0 /100WBC (0-0.00); PLATELET COUNT 270 K/uL (150-450); RBC 5.61 M/uL (3.50-5.50); RDW-CV 15.6 % (11.9-14.6)
[2016-12-27 12:36] LABS: ALBUMIN 2.4 gm/dL (3.5-5.0); ANION GAP 9.2 (10.0-19.0); CALCIUM 8.6 mg/dL (8.5-10.5); CREATININE 0.8 mg/dL (0.5-1.1); POTASSIUM 4.2 mMol/L (3.7-5.1); TOTAL PROTEIN 6.9 g/dL (6.0-8.4)
[2016-12-27 13:10] LABS: TOTAL BILIRUBIN 0.3 mg/dL (0.0-1.5)
[2016-12-28 05:31] LABS: ALBUMIN 2.4 gm/dL (3.5-5.0); ALK PHOS 90 IU/L (33-138); ALT 11 IU/L (12-78); ANION GAP 8.2 (10.0-19.0); AST 17 IU/L (10-40); BLOOD UREA NITROGEN 23 mg/dL (6-24); CALCIUM 8.7 mg/dL (8.5-10.5); CHLORIDE 106 mMol/L (96-110); CO2 33 mMol/L (22-32); CREATININE 0.7 mg/dL (0.5-1.1); POTASSIUM 4.2 mMol/L (3.7-5.1); SODIUM 143 mMol/L (135-145); TOTAL BILIRUBIN 0.3 mg/dL (0.0-1.5); TOTAL PROTEIN 6.9 g/dL (6.0-8.4)
[2016-12-28 05:42] LABS: BASOPHIL % 0.1 %; EOSINOPHIL % 0.1 %; HEMATOCRIT 50.2 % (33.0-46.0); HEMOGLOBIN 15.5 g/dL (10.0-15.0); IMMATURE GRANULOCYTE # 0.1 K/uL (0.0-0.3); IMMATURE GRANULOCYTE % 0.7 %; LYMPHOCYTE # 1.2 K/uL (0.8-4.0); LYMPHOCYTE % 8.3 %; MCH 27.1 pg (27.0-34.0); MCHC 30.9 gm/dL (32.0-36.5); MCV 87.6 fl (83.0-98.0); MONOCYTE # 0.6 K/uL (0.0-1.0); MONOCYTE % 3.9 %; MPV 10.3 fl (9.4-12.4); NEUTROPHIL # (ANC) 12.5 K/uL (1.8-7.8); NEUTROPHIL % 86.9 %; NRBC % 0 /100WBC (0-0.00); PLATELET COUNT 237 K/uL (150-450); RBC 5.73 M/uL (3.50-5.50); RDW-CV 15.9 % (11.9-14.6); WBC 14.4 K/uL (4.0-11.0)
[2016-12-29 07:19] LABS: ALBUMIN 2.4 gm/dL (3.5-5.0); ALK PHOS 92 IU/L (33-138); ALT 18 IU/L (12-78); ANION GAP 8.2 (10.0-19.0); AST 22 IU/L (10-40); BLOOD UREA NITROGEN 20 mg/dL (6-24); CALCIUM 8.5 mg/dL (8.5-10.5); CHLORIDE 106 mMol/L (96-110); CO2 33 mMol/L (22-32); CREATININE 0.6 mg/dL (0.5-1.1); POTASSIUM 4.2 mMol/L (3.7-5.1); SODIUM 143 mMol/L (135-145); TOTAL PROTEIN 6.5 g/dL (6.0-8.4)
[2016-12-29 07:21] LABS: TOTAL BILIRUBIN 0.4 mg/dL (0.0-1.5)
[2016-12-29 07:27] LABS: BASOPHIL % 0.2 %; EOSINOPHIL % 0.2 %; HEMATOCRIT 50.5 % (33.0-46.0); HEMOGLOBIN 15.6 g/dL (10.0-15.0); IMMATURE GRANULOCYTE # 0.1 K/uL (0.0-0.3); LYMPHOCYTE # 1.2 K/uL (0.8-4.0); LYMPHOCYTE % 9.4 %; MCH 27.6 pg (27.0-34.0); MCHC 30.9 gm/dL (32.0-36.5); MCV 89.4 fl (83.0-98.0); MONOCYTE # 0.6 K/uL (0.0-1.0); MONOCYTE % 5.1 %; MPV 10.6 fl (9.4-12.4); NEUTROPHIL # (ANC) 10.5 K/uL (1.8-7.8); NEUTROPHIL % 84.1 %; NRBC % 0 /100WBC (0-0.00); PLATELET COUNT 211 K/uL (150-450); RBC 5.65 M/uL (3.50-5.50); RDW-CV 16.1 % (11.9-14.6); WBC 12.5 K/uL (4.0-11.0)
[2016-12-30 05:32] LABS: BASOPHIL % 0.1 %; EOSINOPHIL # 0.1 K/uL (0.0-0.5); EOSINOPHIL % 0.9 %; HEMATOCRIT 49.1 % (33.0-46.0); HEMOGLOBIN 15.3 g/dL (10.0-15.0); IMMATURE GRANULOCYTE # 0.1 K/uL (0.0-0.3); IMMATURE GRANULOCYTE % 0.9 %; LYMPHOCYTE # 2.7 K/uL (0.8-4.0); MCH 26.7 pg (27.0-34.0); MCHC 31.2 gm/dL (32.0-36.5); MCV 85.8 fl (83.0-98.0); MONOCYTE # 1.2 K/uL (0.0-1.0); MONOCYTE % 7.9 %; MPV 10.4 fl (9.4-12.4); NEUTROPHIL # (ANC) 10.8 K/uL (1.8-7.8); NEUTROPHIL % 72.2 %; NRBC % 0 /100WBC (0-0.00); PLATELET COUNT 189 K/uL (150-450); RBC 5.72 M/uL (3.50-5.50); RDW-CV 15.4 % (11.9-14.6); WBC 14.9 K/uL (4.0-11.0)
[2016-12-30 05:51] LABS: ALBUMIN 2.4 gm/dL (3.5-5.0); ALK PHOS 91 IU/L (33-138); ALT 23 IU/L (12-78); ANION GAP 8.7 (10.0-19.0); AST 25 IU/L (10-40); BLOOD UREA NITROGEN 19 mg/dL (6-24); CALCIUM 8.4 mg/dL (8.5-10.5); CHLORIDE 101 mMol/L (96-110); CO2 34 mMol/L (22-32); CREATININE 0.6 mg/dL (0.5-1.1); POTASSIUM 3.7 mMol/L (3.7-5.1); SODIUM 140 mMol/L (135-145); TOTAL BILIRUBIN 0.4 mg/dL (0.0-1.5); TOTAL PROTEIN 6.2 g/dL (6.0-8.4)
[2017-02-08] MEDS ORDERED: NORVASC2.5 MG PO (21:56)
[2017-02-08] MEDS ORDERED: DECADRON4 MG PO (22:01)
[2017-02-08] MEDS ORDERED: PEPCID20 MG PO (22:06)
[2017-02-08] MEDS ORDERED: LASIX40 MG PO (22:08)
[2017-02-08] MEDS ORDERED: KEPPRA LIQU100 MG/ML PO (22:08)
[2017-02-08] MEDS ORDERED: DIOCTO (= CO10 MG/ML PO (22:11)
[2017-02-08] MEDS ORDERED: MIRALAX17 GM PO (22:12)
[2017-02-08] MEDS ORDERED: DURAGESIC1 EAC1 TRANS (22:17)
[2017-02-08] MEDS ORDERED: DURAGESIC 50MC50 MCG TOP (22:19)
[2017-02-08] MEDS ORDERED: DURAGESIC 25MC25 MCG TOP (22:20)
[2017-02-08] MEDS ORDERED: ZOFRAN4 MG PO (22:21)
[2017-02-08] MEDS ORDERED: COMPAZINE10 MG PO (22:21)
[2017-02-08] MEDS ORDERED: ROXICODONE 5MG (5 MG PO (22:23)
[2017-02-08] MEDS ORDERED: FOLIC ACID1 MG PO (22:24)
[2017-02-08] MEDS ORDERED: OXYCODONE HCL10 MG PO (22:24)
[2017-02-08] MEDS ORDERED: VALIUM5 MG PO (22:25)
[2017-02-08] MEDS ORDERED: OSCAL500 MG PO (22:27)
[2017-02-08] MEDS ORDERED: MILK OF MA2400 MG/10 PO (22:35)
[2017-02-08] MEDS ORDERED: DURAGESIC 25MC25 MCG TRANS (22:38)
[2017-02-08] MEDS ORDERED: DULCOLAX10 MG R (22:42)
[2017-02-10] MEDS ORDERED: LIDODERM1 EACH TRANS (13:18)
[2017-02-10] MEDS ORDERED: TYLENOL EXTRA500 MG PO (13:19)
[2017-02-10] MEDS ORDERED: COMPAZINE10 MG PO (13:21)
[2017-02-10] MEDS ORDERED: TYLENOL650 MG R (13:21)
[2017-02-10] MEDS ORDERED: COMPAZINE R (13:22)
[2017-02-10] MEDS ORDERED: [UNRECOGNIZED DRUG - OTHER] SL (13:25)
[2017-02-10] MEDS ORDERED: HYOSCYAMIN0.125 MG/1 PO (13:26)
[2017-02-10] MEDS ORDERED: MORPHINE 20MG/ML SL (13:28)
[2017-02-10] MEDS ORDERED: HALDOL1 MG PO (13:32)
== END 2016-12-30 12:00 | disposition swing bed (61) | DRG 25 ==
LOC: GICU 01:34
PROVIDERS: Neurological Surgery; ADMIT Internal Medicine
PROC: 02HV33Z Insertion of Infusion Device into Superior Vena Cava, Percutaneous Approach (ICD-10-PCS; principal; 2016-12-26)
PROC: 8E09XBZ Computer Assisted Procedure of Head and Neck Region (ICD-10-PCS; principal; 2016-12-26)
PROC: 00B70ZZ Excision of Cerebral Hemisphere, Open Approach (ICD-10-PCS; principal; 2016-12-26)
PROC: 0PS43ZZ Reposition Thoracic Vertebra, Percutaneous Approach (ICD-10-PCS; 2016-12-28)
PROC: 0PB43ZX Excision of Thoracic Vertebra, Percutaneous Approach, Diagnostic (ICD-10-PCS; 2016-12-28)
PROC: 0PU43JZ Supplement Thoracic Vertebra with Synthetic Substitute, Percutaneous Approach (ICD-10-PCS; 2016-12-28)
DX: C79.31 Secondary malignant neoplasm of brain (principal); G93.6 Cerebral edema; J96.21 Acute and chronic respiratory failure with hypoxia; J90 Pleural effusion, not elsewhere classified; C80.0 Disseminated malignant neoplasm, unspecified; C79.51 Secondary malignant neoplasm of bone; Z99.81 Dependence on supplemental oxygen; C34.92 Malignant neoplasm of unspecified part of left bronchus or lung; R47.01 Aphasia; M48.54XA Collapsed vertebra, not elsewhere classified, thoracic region, initial encounter for fracture; J44.1 Chronic obstructive pulmonary disease with (acute) exacerbation; R47.02 Dysphasia; I10 Essential (primary) hypertension; I25.10 Atherosclerotic heart disease of native coronary artery without angina pectoris; F17.210 Nicotine dependence, cigarettes, uncomplicated; Z95.5 Presence of coronary angioplasty implant and graft; Z85.41 Personal history of malignant neoplasm of cervix uteri; Z85.43 Personal history of malignant neoplasm of ovary
CPT/HCPCS: C1713; C1763; C9399; J0360; J0690; J1100; J1170; J1940; J1953; J1956; J2405; J3480; J7030; J7040; J7050; J7060

== ENCOUNTER → 2017-02-10 | Outpatient (CLI) | payer MEDICARE ==
[~2017-02-10] MED LIST: COMPAZINE R; COMPAZINE10 MG PO; DECADRON4 MG PO; DIOCTO (= CO10 MG/ML PO; DULCOLAX10 MG R; DURAGESIC 25MC25 MCG TOP; DURAGESIC 25MC25 MCG TRANS; DURAGESIC 50MC50 MCG TOP; DURAGESIC1 EAC1 TRANS; FOLIC ACID1 MG PO; HALDOL1 MG PO; HYOSCYAMIN0.125 MG/1 PO; KEPPRA LIQU100 MG/ML PO; LASIX40 MG PO; LIDODERM1 EACH TRANS; MILK OF MA2400 MG/10 PO; MIRALAX17 GM PO; MORPHINE 20MG/ML SL; NORVASC2.5 MG PO; OSCAL500 MG PO; OXYCODONE HCL10 MG PO; OXYGEN M-15 INH; PEPCID20 MG PO; ROXICODONE 5MG (5 MG PO; TYLENOL EXTRA500 MG PO; TYLENOL325 MG PO; TYLENOL650 MG R; ULTRAM50 MG PO; VALIUM5 MG PO; ZOFRAN4 MG PO; [UNRECOGNIZED DRUG - OTHER] PO; [UNRECOGNIZED DRUG - OTHER] SL
== END | disposition disaster alternative care site (69) ==
LOC: GAMB 14:45
DX: R41.82 Altered mental status, unspecified (principal); D70.9 Neutropenia, unspecified; C34.90 Malignant neoplasm of unspecified part of unspecified bronchus or lung; C79.31 Secondary malignant neoplasm of brain; C78.89 Secondary malignant neoplasm of other digestive organs; C78.7 Secondary malignant neoplasm of liver and intrahepatic bile duct; C79.51 Secondary malignant neoplasm of bone; J44.9 Chronic obstructive pulmonary disease, unspecified; G93.40 Encephalopathy, unspecified; R00.0 Tachycardia, unspecified; R21 Rash and other nonspecific skin eruption; R41.0 Disorientation, unspecified; Z46.6 Encounter for fitting and adjustment of urinary device; Z99.11 Dependence on respirator [ventilator] status; Z90.49 Acquired absence of other specified parts of digestive tract; Z90.710 Acquired absence of both cervix and uterus; Z79.891 Long term (current) use of opiate analgesic; Z79.899 Other long term (current) drug therapy
CPT/HCPCS: A0422; A0425; A0426; J2270